=== PATIENT | male | born 1980 | race African-American/Black ===

== ENCOUNTER 2018-05-16 16:02 | Inpatient (IN) ==
[2018-05-16] MEDS ORDERED: Morphine Inj 4 MG/ML Vial IV.PUSH ONE (17:11)
[2018-05-16] MEDS ORDERED: Sod Chloride 0.9% Inj 1,000 ML IV.SIG ONE (17:11)
--- NOTE | 2018-05-16 17:15 | ED ---
HPI General Chief complaint: Nausea/Vomiting/Diarrhea Stated complaint: vomiting/ [facility] Time Seen by Provider: 05/16/18 16:56 History of Present Illness HPI narrative: 37-year-old male with a history of type 1 DM, gastroparesis and HTN presents to the ED for evaluation of nausea, vomiting, diarrhea and abdominal pain. Patient states he has had diarrhea for 3 days. States today he started having vomiting and abdominal pain. Patient states his blood sugars have been in the 300s the last several days as well. He denies any fever, chills, chest pain, shortness of breath, dysuria, hematuria. Denies any prior abdominal surgeries. [facility] No other complaints. Related Data Home Medications Medication Instructions Recorded Confirmed gabapentin 300 mg PO HS 04/04/18 05/16/18 insulin aspart U-100 [Novolog See Protocol SUBCUT ACHS 04/04/18 05/16/18 U-100 Insulin aspart] lisinopril 5 mg PO DAILY 04/04/18 05/16/18 insulin glargine [Lantus U-100 25 unit SUBCUT DAILY 05/16/18 05/16/18 Insulin] Allergies Allergy/AdvReac Type Severity Reaction Status Date / Time No Known Allergies Allergy Verified 05/16/18 16:11 Review of Systems ROS: all other systems reviewed are negative PMFSH Surgical History Surgical History H/O cardiac catheterization (Acute) Family History Family History Mother Diabetes Father Healthy adult male Social History Social History Substance History: No History of Abuse Second Hand Smoke Exposure: No Smoking Status: Never smoker Tobacco Type: Cigarettes How Often Do You Have a Drink Containing Alcohol: Monthly or less Recent Travel in [facility] within the Last 8 Weeks: No Recent Out of Country Travel within the Last 8 Weeks: No Immunization History Tetanus Immunization: >5 Years Exam Narrative Exam Narrative: GENERAL: Well-nourished and well-developed pleasant patient in moderate discomfort, lying in the position on stretcher. SKIN: Warm and dry. HEAD: Normocephalic and atraumatic. EYES: No injection, drainage, or hyphema noted. PERRLA. EOMI. ENT: No nasal drainage noted. Oropharynx is clear. NECK: Supple and the trachea is midline. CARDIOVASCULAR: Regular rate and rhythm. RESPIRATORY: Breath sounds are equal bilaterally with no accessory muscle use, wheezing, rhonchi, or crackles. GASTROINTESTINAL: Generalized tenderness to palpation. Abdomen is soft and nondistended. MUSCULOSKELETAL: No obvious deformities, swelling, cyanosis, or ecchymosis is present throughout the upper and lower extremities. Patient has full range of motion without any signs of neurovascular compromise. Distal pulses are 2+ throughout. NEUROLOGICAL: Awake, alert, and oriented. Normal speech and gait. Cranial nerves are grossly intact. Course Initial Documented Vital Signs Temperature 97.4 F L 05/16/18 16:05 Pulse Rate 120 H 05/16/18 16:05 Respiratory Rate 18 05/16/18 16:05 Blood Pressure 179/104 H 05/16/18 16:05 Pulse Oximetry 98 05/16/18 16:05 Last Documented Vital Signs Temperature 97.9 F 05/19/18 11:33 Pulse Rate 94 H 05/19/18 11:33 Respiratory Rate 17 05/19/18 11:33 Blood Pressure 190/109 H 05/19/18 11:33 Pulse Oximetry 98 05/19/18 11:33 Medical Decision Making REBEKAH Attestation REBEKAH supervised visit: Yes Attestation: I, Dr. Nicole, have reviewed the advance practice practitioner's documentation and am in agreement, met with the patient face to face, made the diagnosis, and the medical decision making was done by me. *My assessment and Findings: Patient seen and evaluated with PA, please see PA notes for further details. He is here for nausea, vomiting, diarrhea, and abdominal pain. Previous history of gastroparesis. Tachycardic. Was given IV fluids and nausea medications in the ER. Lab work sent and CAT scan sent, if unremarkable and the patient is improved, planning to release. [facility] Narrative Medical decision making narrative: 37-year-old male presents to the emergency department for evaluation of diarrhea, nausea, vomiting and abdominal pain. Patient is afebrile. He is tachycardic initially with a heart rate of 120 bpm. His blood pressure is elevated as well. He did not take his lisinopril today as prescribed. IV access is obtained, labs of been drawn and sent. Patient is placed on cardiac telemetry and pulse oximetry monitoring. Patient administered Reglan 10 mg IV for nausea and morphine 4 mg IV for pain. CT of the abdomen and pelvis has been ordered and is pending. CBC shows white blood cell count 12.2, otherwise unremarkable. CMP is within normal limits with the exception of slightly elevated glucose of 203. CT of the abdomen and pelvis with IV contrast shows mild nonspecific colitis mostly at the hepatic flexure and fatty infiltration of the liver. Urinalysis shows elevated specific gravity, 30, 80 ketones, few mucus. Patient has been administered 2 L of IV fluid and his heart rate is still around 110 bpm. Patient is still feeling very poor overall with nausea and abdominal pain. Requesting nonnarcotic pain medication, patient administered Tylenol 1 g orally. Patient administered Cipro 400 mg IV and Flagyl 500 mg IV. Patient will be admitted to medicine service for sepsis, colitis and dehydration. I spoke with Dr. Franco [facility] who accepts patient to his service for admission. Medical Screen Exam Complete: Yes Emergency Medical Condition: Yes Differential Diagnosis Differential Diagnosis: Colitis versus enteritis versus gastroparesis versus dehydration versus DKA Lab Data Result diagrams: 05/18/18 03:42 05/18/18 03:42 Lab Results 05/16/18 05/16/18 05/16/18 Range/Units 18:40 18:40 22:00 WBC 12.2 H (4.0-11.0) th/mm3 RBC 5.16 (4.50-5.90) mil/mm3 Hgb 14.5 (13.0-17.0) gm/dL Hct 44.1 (39.0-51.0) % MCV 85.5 (80.0-100.0) fL MCH 28.1 (27.0-34.0) pg MCHC 32.8 (32.0-36.0) % RDW 13.2 (11.6-17.2) % Plt Count 393 (150-450) th/mm3 MPV 8.0 (7.0-11.0) fL Neut % (Auto) 92.5 H (16.0-70.0) % Lymph % (Auto) 3.5 L (9.0-44.0) % [place] % (Auto) 3.3 (0.0-8.0) % Eos % (Auto) 0.0 (0.0-4.0) % Baso % (Auto) 0.7 (0.0-2.0) % Neut # (Auto) 11.3 H (1.8-7.7) th/mm3 Lymph # (Auto) 0.4 L (1.0-4.8) th/mm3 [place] # (Auto) 0.4 (0.0-0.9) th/mm3 Eos # (Auto) 0.0 (0.0-0.4) th/mm3 Baso # (Auto) 0.1 (0.0-0.2) th/mm3 WBC Differential . Differential Comment Auto diff final Sodium 140 (136-145) meq/L Potassium 4.0 (3.5-5.1) meq/L Chloride 105 (98-107) meq/L Carbon Dioxide 20.6 L (21.0-32.0) meq/L Anion Gap 14 (5-15) meq/L BUN 14 (7-18) mg/dL Creatinine 1.07 (0.60-1.30) mg/dL Estimated GFR Greater than 89 (>89) mL/min POC Glucose (68-110) mg/dl Random Glucose 203 H (74-106) mg/dL Lactic Acid (0.4-2.0) mmol/L Calcium 9.2 (8.5-10.1) mg/dL Magnesium 1.8 (1.5-2.5) mg/dL Total Bilirubin 0.2 (0.2-1.0) mg/dL AST 13 L (15-37) U/L ALT 18 (12-78) U/L Alkaline Phosphatase 92 (45-117) U/L Total Protein 8.2 (6.4-8.2) g/dL Albumin 3.9 (3.4-5.0) g/dL Lipase 92 (73-393) U/L Urine Color Straw (Yellw/Straw) Urine Clarity Clear (Clear) Urine pH 5.0 (5.0-8.5) Ur Specific [place] 1.039 H (1.002-1.035) Urine Protein 30 H (Neg-Trace) mg/dL Urine Glucose (UA) 500 or greater (Negative) mg/dL Urine Ketones 80 or greater H (Negative) mg/dL Urine Occult Blood Negative (Negative) Urine Nitrate Negative (Negative) Urine Bilirubin Negative (Negative) Urine Urobilinogen Less than 2 (Less than 2) mg/dL Ur Leukocyte Esterase Negative (Negative) Urine RBC 1 (0-3) /hpf Urine WBC Less than 1 (0-5) /hpf Hyaline Casts 1 (0-3) /lpf Urine Mucus Few H (Occasional) /lpf Micro UA Comment Culture not ind Ur Microscopic Review Not Reportable Urine Culture Comments Culture not ind 05/16/18 05/17/18 05/17/18 Range/Units 23:01 00:52 02:01 WBC (4.0-11.0) th/mm3 RBC (4.50-5.90) mil/mm3 Hgb (13.0-17.0) gm/dL Hct (39.0-51.0) % MCV (80.0-100.0) fL MCH (27.0-34.0) pg MCHC (32.0-36.0) % RDW (11.6-17.2) % Plt Count (150-450) th/mm3 MPV (7.0-11.0) fL Neut % (Auto) (16.0-70.0) % Lymph % (Auto) (9.0-44.0) % [place] % (Auto) (0.0-8.0) % Eos % (Auto) (0.0-4.0) % Baso % (Auto) (0.0-2.0) % Neut # (Auto) (1.8-7.7) th/mm3 Lymph # (Auto) (1.0-4.8) th/mm3 [place] # (Auto) (0.0-0.9) th/mm3 Eos # (Auto) (0.0-0.4) th/mm3 Baso # (Auto) (0.0-0.2) th/mm3 WBC Differential Differential Comment Sodium (136-145) meq/L Potassium (3.5-5.1) meq/L Chloride (98-107) meq/L Carbon Dioxide (21.0-32.0) meq/L Anion Gap (5-15) meq/L BUN (7-18) mg/dL Creatinine (0.60-1.30) mg/dL Estimated GFR (>89) mL/min POC Glucose 382 H (68-110) mg/dl Random Glucose (74-106) mg/dL Lactic Acid 3.2 H 2.4 H (0.4-2.0) mmol/L Calcium (8.5-10.1) mg/dL Magnesium (1.5-2.5) mg/dL Total Bilirubin (0.2-1.0) mg/dL AST (15-37) U/L ALT (12-78) U/L Alkaline Phosphatase (45-117) U/L Total Protein (6.4-8.2) g/dL Albumin (3.4-5.0) g/dL Lipase (73-393) U/L Urine Color (Yellw/Straw) Urine Clarity (Clear) Urine pH (5.0-8.5) Ur Specific [place] (1.002-1.035) Urine Protein (Neg-Trace) mg/dL Urine Glucose (UA) (Negative) mg/dL Urine Ketones (Negative) mg/dL Urine Occult Blood (Negative) Urine Nitrate (Negative) Urine Bilirubin (Negative) Urine Urobilinogen (Less than 2) mg/dL Ur Leukocyte Esterase (Negative) Urine RBC (0-3) /hpf Urine WBC (0-5) /hpf Hyaline Casts (0-3) /lpf Urine Mucus (Occasional) /lpf Micro UA Comment Ur Microscopic Review Urine Culture Comments 05/17/18 05/17/18 05/17/18 Range/Units 03:43 04:08 08:16 WBC (4.0-11.0) th/mm3 RBC (4.50-5.90) mil/mm3 Hgb (13.0-17.0) gm/dL Hct (39.0-51.0) % MCV (80.0-100.0) fL MCH (27.0-34.0) pg MCHC (32.0-36.0) % RDW (11.6-17.2) % Plt Count (150-450) th/mm3 MPV (7.0-11.0) fL Neut % (Auto) (16.0-70.0) % Lymph % (Auto) (9.0-44.0) % [place] % (Auto) (0.0-8.0) % Eos % (Auto) (0.0-4.0) % Baso % (Auto) (0.0-2.0) % Neut # (Auto) (1.8-7.7) th/mm3 Lymph # (Auto) (1.0-4.8) th/mm3 [place] # (Auto) (0.0-0.9) th/mm3 Eos # (Auto) (0.0-0.4) th/mm3 Baso # (Auto) (0.0-0.2) th/mm3 WBC Differential Differential Comment Sodium (136-145) meq/L Potassium (3.5-5.1) meq/L Chloride (98-107) meq/L Carbon Dioxide (21.0-32.0) meq/L Anion Gap (5-15) meq/L BUN (7-18) mg/dL Creatinine (0.60-1.30) mg/dL Estimated GFR (>89) mL/min POC Glucose 369 H 298 H (68-110) mg/dl Random Glucose (74-106) mg/dL Lactic Acid 2.6 H (0.4-2.0) mmol/L Calcium (8.5-10.1) mg/dL Magnesium (1.5-2.5) mg/dL Total Bilirubin (0.2-1.0) mg/dL AST (15-37) U/L ALT (12-78) U/L Alkaline Phosphatase (45-117) U/L Total Protein (6.4-8.2) g/dL Albumin (3.4-5.0) g/dL Lipase (73-393) U/L Urine Color (Yellw/Straw) Urine Clarity (Clear) Urine pH (5.0-8.5) Ur Specific [place] (1.002-1.035) Urine Protein (Neg-Trace) mg/dL Urine Glucose (UA) (Negative) mg/dL Urine Ketones (Negative) mg/dL Urine Occult Blood (Negative) Urine Nitrate (Negative) Urine Bilirubin (Negative) Urine Urobilinogen (Less than 2) mg/dL Ur Leukocyte Esterase (Negative) Urine RBC (0-3) /hpf Urine WBC (0-5) /hpf Hyaline Casts (0-3) /lpf Urine Mucus (Occasional) /lpf Micro UA Comment Ur Microscopic Review Urine Culture Comments 05/17/18 05/17/18 05/17/18 Range/Units 11:11 17:14 19:35 WBC (4.0-11.0) th/mm3 RBC (4.50-5.90) mil/mm3 Hgb (13.0-17.0) gm/dL Hct (39.0-51.0) % MCV (80.0-100.0) fL MCH (27.0-34.0) pg MCHC (32.0-36.0) % RDW (11.6-17.2) % Plt Count (150-450) th/mm3 MPV (7.0-11.0) fL Neut % (Auto) (16.0-70.0) % Lymph % (Auto) (9.0-44.0) % [place] % (Auto) (0.0-8.0) % Eos % (Auto) (0.0-4.0) % Baso % (Auto) (0.0-2.0) % Neut # (Auto) (1.8-7.7) th/mm3 Lymph # (Auto) (1.0-4.8) th/mm3 [place] # (Auto) (0.0-0.9) th/mm3 Eos # (Auto) (0.0-0.4) th/mm3 Baso # (Auto) (0.0-0.2) th/mm3 WBC Differential Differential Comment Sodium (136-145) meq/L Potassium (3.5-5.1) meq/L Chloride (98-107) meq/L Carbon Dioxide (21.0-32.0) meq/L Anion Gap (5-15) meq/L BUN (7-18) mg/dL Creatinine (0.60-1.30) mg/dL Estimated GFR (>89) mL/min POC Glucose 243 H 262 H 197 H (68-110) mg/dl Random Glucose (74-106) mg/dL Lactic Acid (0.4-2.0) mmol/L Calcium (8.5-10.1) mg/dL Magnesium (1.5-2.5) mg/dL Total Bilirubin (0.2-1.0) mg/dL AST (15-37) U/L ALT (12-78) U/L Alkaline Phosphatase (45-117) U/L Total Protein (6.4-8.2) g/dL Albumin (3.4-5.0) g/dL Lipase (73-393) U/L Urine Color (Yellw/Straw) Urine Clarity (Clear) Urine pH (5.0-8.5) Ur Specific [place] (1.002-1.035) Urine Protein (Neg-Trace) mg/dL Urine Glucose (UA) (Negative) mg/dL Urine Ketones (Negative) mg/dL Urine Occult Blood (Negative) Urine Nitrate (Negative) Urine Bilirubin (Negative) Urine Urobilinogen (Less than 2) mg/dL Ur Leukocyte Esterase (Negative) Urine RBC (0-3) /hpf Urine WBC (0-5) /hpf Hyaline Casts (0-3) /lpf Urine Mucus (Occasional) /lpf Micro UA Comment Ur Microscopic Review Urine Culture Comments 05/17/18 05/18/18 05/18/18 Range/Units 20:09 03:42 03:42 WBC 11.4 H (4.0-11.0) th/mm3 RBC 5.04 (4.50-5.90) mil/mm3 Hgb 14.7 (13.0-17.0) gm/dL Hct 42.9 (39.0-51.0) % MCV 85.1 (80.0-100.0) fL MCH 29.2 (27.0-34.0) pg MCHC 34.3 (32.0-36.0) % RDW 13.3 (11.6-17.2) % Plt Count 342 (150-450) th/mm3 MPV 8.8 (7.0-11.0) fL Neut % (Auto) 82.4 H (16.0-70.0) % Lymph % (Auto) 10.5 (9.0-44.0) % [place] % (Auto) 6.5 (0.0-8.0) % Eos % (Auto) 0.2 (0.0-4.0) % Baso % (Auto) 0.4 (0.0-2.0) % Neut # (Auto) 9.4 H (1.8-7.7) th/mm3 Lymph # (Auto) 1.2 (1.0-4.8) th/mm3 [place] # (Auto) 0.7 (0.0-0.9) th/mm3 Eos # (Auto) 0.0 (0.0-0.4) th/mm3 Baso # (Auto) 0.0 (0.0-0.2) th/mm3 WBC Differential . Differential Comment Auto diff final Sodium 140 (136-145) meq/L Potassium 4.0 (3.5-5.1) meq/L Chloride 103 (98-107) meq/L Carbon Dioxide 18.5 L (21.0-32.0) meq/L Anion Gap 19 H (5-15) meq/L BUN 12 (7-18) mg/dL Creatinine 1.04 (0.60-1.30) mg/dL Estimated GFR Greater than 89 (>89) mL/min POC Glucose (68-110) mg/dl Random Glucose 233 H (74-106) mg/dL Lactic Acid 1.7 (0.4-2.0) mmol/L Calcium 8.8 (8.5-10.1) mg/dL Magnesium (1.5-2.5) mg/dL Total Bilirubin 0.3 (0.2-1.0) mg/dL AST 11 L (15-37) U/L ALT 16 (12-78) U/L Alkaline Phosphatase 87 (45-117) U/L Total Protein 7.8 (6.4-8.2) g/dL Albumin 3.7 (3.4-5.0) g/dL Lipase (73-393) U/L Urine Color (Yellw/Straw) Urine Clarity (Clear) Urine pH (5.0-8.5) Ur Specific [place] (1.002-1.035) Urine Protein (Neg-Trace) mg/dL Urine Glucose (UA) (Negative) mg/dL Urine Ketones (Negative) mg/dL Urine Occult Blood (Negative) Urine Nitrate (Negative) Urine Bilirubin (Negative) Urine Urobilinogen (Less than 2) mg/dL Ur Leukocyte Esterase (Negative) Urine RBC (0-3) /hpf Urine WBC (0-5) /hpf Hyaline Casts (0-3) /lpf Urine Mucus (Occasional) /lpf Micro UA Comment Ur Microscopic Review Urine Culture Comments 05/18/18 05/18/18 05/18/18 Range/Units 08:37 12:50 16:28 WBC (4.0-11.0) th/mm3 RBC (4.50-5.90) mil/mm3 Hgb (13.0-17.0) gm/dL Hct (39.0-51.0) % MCV (80.0-100.0) fL MCH (27.0-34.0) pg MCHC (32.0-36.0) % RDW (11.6-17.2) % Plt Count (150-450) th/mm3 MPV (7.0-11.0) fL Neut % (Auto) (16.0-70.0) % Lymph % (Auto) (9.0-44.0) % [place] % (Auto) (0.0-8.0) % Eos % (Auto) (0.0-4.0) % Baso % (Auto) (0.0-2.0) % Neut # (Auto) (1.8-7.7) th/mm3 Lymph # (Auto) (1.0-4.8) th/mm3 [place] # (Auto) (0.0-0.9) th/mm3 Eos # (Auto) (0.0-0.4) th/mm3 Baso # (Auto) (0.0-0.2) th/mm3 WBC Differential Differential Comment Sodium (136-145) meq/L Potassium (3.5-5.1) meq/L Chloride (98-107) meq/L Carbon Dioxide (21.0-32.0) meq/L Anion Gap (5-15) meq/L BUN (7-18) mg/dL Creatinine (0.60-1.30) mg/dL Estimated GFR (>89) mL/min POC Glucose 266 H 268 H 261 H (68-110) mg/dl Random Glucose (74-106) mg/dL Lactic Acid (0.4-2.0) mmol/L Calcium (8.5-10.1) mg/dL Magnesium (1.5-2.5) mg/dL Total Bilirubin (0.2-1.0) mg/dL AST (15-37) U/L ALT (12-78) U/L Alkaline Phosphatase (45-117) U/L Total Protein (6.4-8.2) g/dL Albumin (3.4-5.0) g/dL Lipase (73-393) U/L Urine Color (Yellw/Straw) Urine Clarity (Clear) Urine pH (5.0-8.5) Ur Specific [place] (1.002-1.035) Urine Protein (Neg-Trace) mg/dL Urine Glucose (UA) (Negative) mg/dL Urine Ketones (Negative) mg/dL Urine Occult Blood (Negative) Urine Nitrate (Negative) Urine Bilirubin (Negative) Urine Urobilinogen (Less than 2) mg/dL Ur Leukocyte Esterase (Negative) Urine RBC (0-3) /hpf Urine WBC (0-5) /hpf Hyaline Casts (0-3) /lpf Urine Mucus (Occasional) /lpf Micro UA Comment Ur Microscopic Review Urine Culture Comments 05/18/18 05/19/18 05/19/18 Range/Units 20:08 07:45 11:23 WBC (4.0-11.0) th/mm3 RBC (4.50-5.90) mil/mm3 Hgb (13.0-17.0) gm/dL Hct (39.0-51.0) % MCV (80.0-100.0) fL MCH (27.0-34.0) pg MCHC (32.0-36.0) % RDW (11.6-17.2) % Plt Count (150-450) th/mm3 MPV (7.0-11.0) fL Neut % (Auto) (16.0-70.0) % Lymph % (Auto) (9.0-44.0) % [place] % (Auto) (0.0-8.0) % Eos % (Auto) (0.0-4.0) % Baso % (Auto) (0.0-2.0) % Neut # (Auto) (1.8-7.7) th/mm3 Lymph # (Auto) (1.0-4.8) th/mm3 [place] # (Auto) (0.0-0.9) th/mm3 Eos # (Auto) (0.0-0.4) th/mm3 Baso # (Auto) (0.0-0.2) th/mm3 WBC Differential Differential Comment Sodium (136-145) meq/L Potassium (3.5-5.1) meq/L Chloride (98-107) meq/L Carbon Dioxide (21.0-32.0) meq/L Anion Gap (5-15) meq/L BUN (7-18) mg/dL Creatinine (0.60-1.30) mg/dL Estimated GFR (>89) mL/min POC Glucose 264 H 268 H 254 H (68-110) mg/dl Random Glucose (74-106) mg/dL Lactic Acid (0.4-2.0) mmol/L Calcium (8.5-10.1) mg/dL Magnesium (1.5-2.5) mg/dL Total Bilirubin (0.2-1.0) mg/dL AST (15-37) U/L ALT (12-78) U/L Alkaline Phosphatase (45-117) U/L Total Protein (6.4-8.2) g/dL Albumin (3.4-5.0) g/dL Lipase (73-393) U/L Urine Color (Yellw/Straw) Urine Clarity (Clear) Urine pH (5.0-8.5) Ur Specific [place] (1.002-1.035) Urine Protein (Neg-Trace) mg/dL Urine Glucose (UA) (Negative) mg/dL Urine Ketones (Negative) mg/dL Urine Occult Blood (Negative) Urine Nitrate (Negative) Urine Bilirubin (Negative) Urine Urobilinogen (Less than 2) mg/dL Ur Leukocyte Esterase (Negative) Urine RBC (0-3) /hpf Urine WBC (0-5) /hpf Hyaline Casts (0-3) /lpf Urine Mucus (Occasional) /lpf Micro UA Comment Ur Microscopic Review Urine Culture Comments Imaging Data Radiologist's impression: Abdomen/Pelvis CT 05/16/18 17:11 CONCLUSION: 1. Apparent mild nonspecific colitis, mostly in the hepatic flexure region. 2. Liver is slightly fatty infiltrated. Abdomen X-Ray 05/18/18 00:00 CONCLUSION: Negative examination. Discharge Plan Discharge Disposition Patient Disposition: 30 Still Patient Discharge Condition Condition: Stable Discharge Details Diagnosis: Sepsis, Colitis, Dehydration Physicians Team ED Provider: Rylan Nicole ED Midlevel Provider: Sharee Catalan Primary Care Provider: [facility],Physician 's Attending Provider: Kady Gonzalez Status ED Status: Left Department Discharge Information Discharge Date/Time: 05/17/18 12:26
[2018-05-16] MEDS ORDERED: Lisinopril 5 MG Tablet PO ONE (18:33)
[2018-05-16 19:03] LABS: Baso # (Auto) 0.1 th/mm3 (0.0-0.2); Baso % (Auto) 0.7 % (0.0-2.0); Hematocrit 44.1 % (39.0-51.0); Hemoglobin 14.5 gm/dL (13.0-17.0); Lymph # (Auto) 0.4 th/mm3 (1.0-4.8); Lymph % (Auto) 3.5 % (9.0-44.0); Mean Corpuscular HGB Conc 32.8 % (32.0-36.0); Mean Corpuscular Hemoglobin 28.1 pg (27.0-34.0); Mean Corpuscular Volume 85.5 fL (80.0-100.0); Mono # (Auto) 0.4 th/mm3 (0.0-0.9); Mono % (Auto) 3.3 % (0.0-8.0); Neut # (Auto) 11.3 th/mm3 (1.8-7.7); Neut % (Auto) 92.5 % (16.0-70.0); Platelet Count 393 th/mm3 (150-450); Red Blood Count 5.16 mil/mm3 (4.50-5.90); Red Cell Distribution Width 13.2 % (11.6-17.2); White Blood Count 12.2 th/mm3 (4.0-11.0)
[2018-05-16 19:35] LABS: Alanine Aminotransferase 18 U/L (12-78); Albumin 3.9 g/dL (3.4-5.0); Anion Gap 14 meq/L (5-15); Aspartate Aminotransferase 13 U/L (15-37); Blood Urea Nitrogen 14 mg/dL (7-18); Calcium 9.2 mg/dL (8.5-10.1); Carbon Dioxide 20.6 meq/L (21.0-32.0); Chloride 105 meq/L (98-107); Glomerular Filtration Rate Greater Than 89 mL/min (>89); Glucose,Random 203 mg/dL (74-106); Lipase 92 U/L (73-393); Magnesium 1.8 mg/dL (1.5-2.5); Sodium 140 meq/L (136-145)
[2018-05-16 19:38] LABS: Alkaline Phosphatase 92 U/L (45-117); Total Protein 8.2 g/dL (6.4-8.2)
--- NOTE | 2018-05-16 20:08 | CT ---
EXAM DATE: 05/16/2018 7:58 PM EST AGE/SEX: 37 years / Male INDICATIONS: Diffuse abdominal pain with vomiting and diarrhea. CLINICAL DATA: This is the patient's initial encounter. Patient reports that signs and symptoms have been present for 2 days and indicates a pain score of 10/10. MEDICAL/SURGICAL HISTORY: Hypertension. Diabetes. None. ORAL CONTRAST: No oral contrast ingested. RADIATION DOSE: 5.37 CTDI (mGy) [place] [facility] [place] 12/21/2015. . TECHNIQUE: Multiple contiguous axial images were obtained through the abdomen and pelvis following b olus infusion of 95 ml Omnipaque 350 (iohexol) nonionic water-soluble contrast as a single exam dos e. No oral contrast ingested. Using automated exposure control and adjustment of the mA and/or kV ac cording to patient size, radiation dose was kept as low as reasonably achievable to obtain optimal di agnostic quality images. DICOM format image data is available electronically for review and comparis on. FINDINGS: Colonic wall thickening is seen in the region of the hepatic flexure. No obstruction. No free fluid o r free air. No lymphadenopathy. The appendix is well-visualized and normal. The liver is slightly fatty infiltrated. Spleen, pancreas, adrenal glands and kidneys are all within normal limits. Visualized lung bases are clear. No acute bony abnormality demonstrated. CONCLUSION: 1. Apparent mild nonspecific colitis, mostly in the hepatic flexure region. 2. Liver is slightly fatty infiltrated. Electronically signed by: Mukesh Dutta MD 05/16/2018 8:07 PM EST
[2018-05-16] MEDS ORDERED: Ciprofloxacin 400 MG/200 ML 400 MG/200 ML PIGGYBACK IV.SIG ONE (20:29)
[2018-05-16] MEDS ORDERED: Sod Chloride 0.9% Inj 1,000 ML IV.SIG SCH (20:30)
[2018-05-16 22:33] LABS: Bilirubin,Urine Negative (Negative); Clarity,Urine Clear (Clear); Color,Urine Straw (Yellw/Straw); Glucose,Urine (UA) 500 or Greater mg/dL (Negative); Hyaline Casts,Urine 1 /lpf (0-3); Leukocyte Esterase,Urine Negative (Negative); Mucus,Urine Few /lpf (Occasional); Nitrite,Urine Negative (Negative); Specific Gravity,Urine 1.039 (1.002-1.035)
[2018-05-16] MEDS ORDERED: Acetaminophen 500 MG Tablet PO ONE (22:55)
[2018-05-17] MEDS ORDERED: Bisacodyl 10 MG Supp RECTAL PRN (00:23)
[2018-05-17] MEDS ORDERED: Insulin Detemir Inj 1,000 UNIT/10 ML Vial SQ SCH (00:30)
[2018-05-17] MEDS: Sod Chloride 0.9% Inj 1,000 ML IV.CONT SCH ×3 (00:50→20:24)
[2018-05-17] MEDS ORDERED: Morphine Inj 4 MG/ML Vial IV.PUSH PRN ×2 (02:29)
[2018-05-17] MEDS ORDERED: Naloxone Inj 0.4 MG/ML Vial IV.PUSH PRN (02:29)
[2018-05-17] MEDS: Morphine Sulfate Inj 2 MG/ML Vial IV.PUSH PRN (03:30)
[2018-05-17] MEDS ORDERED: Potassium Chlor 10 mEq Premix 10 MEQ/100 ML PIGGYBACK IV.SIG ONE (04:52)
--- NOTE | 2018-05-17 04:59 | P.HPIM ---
History of Present Illness Primary Care Physician: [facility] History of Present Illness: 37-year-old male with a history of type 1 diabetes mellitus, hypertension, gastroparesis who presents with a 3-day history of nausea, vomiting, profuse watery diarrhea, crampy diffuse abdominal pain limited to the abdomen, as well as fatigue.. He reports chills today while in the ER, however denies any fevers. He is also reports hyperglycemia with sugars in the 300s. Denies any dysuria, chest pain, shortness of breath. Patient does have history of cardiac catheterization which was portably negative. Inpatient Certification: I certify that the inpatient services were ordered in accordance with Medicare regulations governing the order. This includes certification that hospital inpatient services are reasonable and necessary and in the case of services not specified as inpatient-only under 42 CFR 419.22(n), that they are appropriately provided as inpatient services in accordance to with the 2-midnight benchmark under 43 CFR 412.3(e) Estimated Total Length of Stay (Days): 2 Plans for Post Hospital Care: Home Review of Systems All other systems reviewed negative except as stated in HPI PMFSH - History History Provided By: Patient - Medical History Medical History: Medical History (Last Reviewed 05/17/18 @ 04:59 by Stepan Franco MD) No significant past surgical history Diabetes Hypertension - Surgical History Surgical History: Surgical History (Last Updated 05/17/18 @ 04:59 by Stepan Franco MD) H/O cardiac catheterization - Family History Family History: Family History (Last Updated 05/17/18 @ 04:59 by Stepan Franco MD) Mother Diabetes Father Healthy adult male - Tobacco History Second Hand Smoke Exposure: No Tobacco Use In Past 30 Days: No Smoking Status: Former smoker Tobacco Type: Cigarettes - Alcohol History How Often Do You Have a Drink Containing Alcohol: Never - Substance Use History Substance History: No History of Abuse - Travel History Recent Travel in the [place] Within the Last 8 Weeks: No Recent Travel Out of the Country Within the Last 8 Weeks: No - Immunization History Tetanus Immunization: >5 Years Medications and Allergies Active Medications: Active Medications Al Hydroxide/Mg Hydroxide (Milk Of Magnjayashree Liq) 30 ml PO Q12H PRN PRN Reason: Mild Constipation Bisacodyl (Dulcolax Supp) 10 mg RECTAL DAILY PRN PRN Reason: SEVERE CONSITIPATION Cefepime HCl 2,000 mg/ Sodium (Chloride) 100 mls @ 200 mls/hr IV.SIG Q8H [facility] Last Infusion: 05/17/18 01:37 Dose: Infused Metronidazole/Sodium Chloride (Flagyl 500 Mg Inj) 100 mls @ 100 mls/hr IV.SIG Q8H [facility] Last Infusion: 05/17/18 02:45 Dose: Infused Sodium Chloride (Ns Inj) 1,000 mls @ 100 mls/hr IV.CONT .Q10H [facility] Last Admin: 05/17/18 00:50 Dose: 100 mls/hr Insulin Aspart (Novolog Insulin Correctional Sugar Inj) 0 unit SQ ACHS [facility]; Protocol Insulin Detemir (Levemir Inj) 5 unit SQ BID [facility] Last Admin: 05/17/18 01:02 Dose: 5 unit Lactulose (Lactulose Liq) 30 ml PO DAILY PRN PRN Reason: SEVERE CONSITIPATION Morphine Sulfate (Morphine Inj) 4 mg IV.PUSH Q3H PRN PRN Reason: PAIN 6-10;IF UNABLE TO TAKE PO Morphine Sulfate (Morphine Inj) 4 mg IV.PUSH Q3H PRN PRN Reason: BREAKTHROUGH PAIN Morphine Sulfate (Morphine Inj) 2 mg IV.PUSH Q3H PRN PRN Reason: PAIN 3-5; IF UABLE TO TAKE PO Last Admin: 05/17/18 03:30 Dose: 2 mg Naloxone HCl (Narcan Inj) 0.4 mg IV.PUSH UNSCH PRN PRN Reason: SEE LABEL COMMENTS Oxycodone/Acetaminophen (Percocet 10/325 Mg) 1 tab PO Q6H PRN PRN Reason: PAIN SCALE 6 TO 10 Oxycodone/Acetaminophen (Percocet 5/325 Mg) 1 tab PO Q6H PRN PRN Reason: PAIN SCALE 3 TO 5 Sennosides (Senokot) 17.2 mg PO Q12H PRN PRN Reason: Moderate Constipation Sodium Chloride (Ns Flush) 2 ml IV.FLUSH PRN PRN PRN Reason: FLUSH AFTER USING IV ACCESS Last Admin: 05/16/18 17:32 Dose: 2 ml Allergies Allergy/AdvReac Type Severity Reaction Status Date / Time No Known Allergies Allergy Verified 05/16/18 16:11 Home Medications Medication Instructions Recorded Confirmed Type gabapentin 300 mg PO HS 04/04/18 05/16/18 History insulin aspart U-100 [Novolog See Protocol SUBCUT ACHS 04/04/18 05/16/18 History U-100 Insulin aspart] lisinopril 5 mg PO DAILY 04/04/18 05/16/18 History insulin glargine [Lantus U-100 25 unit SUBCUT DAILY 05/16/18 05/16/18 History Insulin] Exam Vital signs: Vital Signs 05/16/18 16:05 05/16/18 17:30 05/16/18 19:17 Temperature 97.4 F L Pulse Rate 120 H 111 H Respiratory Rate 18 16 18 Blood Pressure 179/104 H 163/99 H Pulse Oximetry 98 97 05/17/18 02:04 Temperature Pulse Rate 117 H Respiratory Rate 18 Blood Pressure 165/97 H Pulse Oximetry 99 Intake & Output 05/16/18 05/16/18 05/17/18 06:59 18:59 06:59 Intake Total 1000 / 1000 1500 / 1500 Balance 1000 / 1000 1500 / 1500 Weight 72.575 kg Intake: IV 1000 / 1000 1500 / 1500 Maxipime Inj 2,000 MG In NS Inj 100 / 100 100 ML @ 200 mls/hr IV.SIG Q8H [facility] Rx#:[id number] Cipro 400 MG/200 ML Inj 400 mg 200 / 200 In 200 ml @ 200 mls/hr IV.SIG ONCE ONE Rx#:[id number] NS Inj 1,000 ML @ 1000 mls/hr 1000 / 1000 1000 / 1000 IV.SIG BOLUS [facility] Rx#:[id number] Flagyl 500 MG Inj 100 ML @ 100 200 / 200 mls/hr IV.SIG Q8H [facility] Rx#: [id number] Other: Date of Last Bowel Movement 05/16/18 Narrative: GENERAL: Patient sitting up in bed. Appears uncomfortable. Alert and oriented x3. SKIN: Warm and dry. HEAD: Atraumatic. Normocephalic. EYES: Pupils equal and round. No scleral icterus. No injection or drainage. ENT: No nasal bleeding or discharge. Mucous membranes pink and moist. NECK: Trachea midline. No JVD. CARDIOVASCULAR: Regular rate and rhythm. RESPIRATORY: No accessory muscle use. Clear to auscultation. Breath sounds equal bilaterally. GASTROINTESTINAL: Abdomen soft, nondistended. Tender to moderate palpation diffusely. Hepatic and splenic margins not palpable. MUSCULOSKELETAL: Extremities without clubbing, cyanosis, or edema. No obvious deformities. NEUROLOGICAL: Awake and alert. No obvious cranial nerve deficits. Motor grossly within normal limits. Five out of 5 muscle strength in the arms and legs. Normal speech. PSYCHIATRIC: Appropriate mood and affect; insight and judgment normal. Results - Labs CBC & Chem 7: 05/16/18 18:40 05/16/18 18:40 Labs: Short CBC 05/16/18 Range/Units 18:40 WBC 12.2 H (4.0-11.0) th/mm3 Hgb 14.5 (13.0-17.0) gm/dL Hct 44.1 (39.0-51.0) % Plt Count 393 (150-450) th/mm3 BMP 05/16/18 18:40 Sodium 140 Potassium 4.0 Chloride 105 Carbon Dioxide 20.6 L BUN 14 Creatinine 1.07 Calcium 9.2 Liver Function 05/16/18 Range/Units 18:40 Total Bilirubin 0.2 (0.2-1.0) mg/dL AST 13 L (15-37) U/L ALT 18 (12-78) U/L Alkaline Phosphatase 92 (45-117) U/L Albumin 3.9 (3.4-5.0) g/dL Urine 05/16/18 Range/Units 22:00 Urine Color Straw (Yellw/Straw) Urine Clarity Clear (Clear) Urine pH 5.0 (5.0-8.5) Ur Specific [place] 1.039 H (1.002-1.035) Urine Protein 30 H (Neg-Trace) mg/dL Urine Glucose (UA) 500 or greater (Negative) mg/dL - Imaging Impressions Abdomen/Pelvis CT 05/16/18 17:11 CONCLUSION: 1. Apparent mild nonspecific colitis, mostly in the hepatic flexure region. 2. Liver is slightly fatty infiltrated. Caprini VTE Risk Assessment Caprini VTE Risk Assessment: No/Low Risk (score <= 1) Caprini Risk Assessment Model: Point Value = 1 Point Value = 2 Point Value = 3 Point Value = 5 Age 41-60 Minor surgery BMI > 25 kg/m2 Swollen legs Varicose veins or History of unexplained or recurrent spontaneous Oral contraceptives or hormone replacement Sepsis (< 1 month) Serious lung disease, including pneumonia (< 1 month) Abnormal pulmonary function Acute myocardial infarction Congestive heart failure (< 1 month) History of inflammatory bowel disease Medical patient at bed rest Age 61-74 Arthroscopic surgery Major open surgery (> 45 min) Laparoscopic surgery (> 45 min) Malignancy Confined to bed (> 72 hours) Immobilizing plaster cast Central venous access Age >= 75 History of VTE Family history of VTE Factor V Leiden Prothrombin [id number] Lupus anticoagulant Anticardiolipin antibodies Elevated serum homocysteine Heparin-induced thrombocytopenia Other congenital or acquired thrombophilia Stroke (< 1 month) Elective arthroplasty Hip, pelvis, or leg fracture Acute spinal cord injury (< 1 month) Prophylaxis Regimen: Total Risk Factor Score Risk Level Prophylaxis Regimen 0-1 Low Early ambulation 2 Moderate Order ONE of the following: *Sequential Compression Device (SCD) *Heparin 5000 units SQ BID 3-4 Higher Order ONE of the following medications: *Heparin 5000 units SQ TID *Enoxaparin/Lovenox 40 mg SQ daily (WT < 150 kg, CrCl > 30 mL/min) *Enoxaparin/Lovenox 30 mg SQ daily (WT < 150 kg, CrCl > 10-29 mL/min) *Enoxaparin/Lovenox 30 mg SQ BID (WT < 150 kg, CrCl > 30 mL/min) AND/OR *Sequential Compression Device (SCD) 5 or more Highest Order ONE of the following medications: *Heparin 5000 units SQ TID (Preferred with Epidurals) *Enoxaparin/Lovenox 40 mg SQ daily (WT < 150 kg, CrCl > 30 mL/min) *Enoxaparin/Lovenox 30 mg SQ daily (WT < 150 kg, CrCl > 10-29 mL/min) *Enoxaparin/Lovenox 30 mg SQ BID (WT < 150 kg, CrCl > 30 mL/min) AND *Sequential Compression Device (SCD) Assessment and Plan - Plan //Sepsis //Colitis //Nausea and vomiting -Lactic acid 3.2 on admission. Improved to 2.4. Will need to be followed subsequently. -Leukocytosis, tachycardia. Abdominal tenderness, colitis on abdominal CT. -Check stool enteric pathogens and C. difficile -IDSA recommends against obtaining blood cultures for intra-abdominal infections. -Antiemetics as necessary. -Pain regimen ordered. Broad-spectrum antibiotics. //Diabetes mellitus type 1 //Ketosis on admission without anion gap. //Hyperglycemia with glucose in the 300s. Start Levemir, insulin sliding scale. Give 5 units of IV insulin. Watch potassium closely. //Hypertension. Blood pressure elevated. Will start on as needed Vasotec. Discussed Condition With: Patient, nurse, ED physician.
[2018-05-17] MEDS: Insulin Detemir Inj 1,000 UNIT/10 ML Vial SQ SCH ×2 (08:48→20:37)
[2018-05-17] MEDS: Insulin NovoLOG Aspart Correctional Sugar Inj SQ SCH ×4 (08:49→20:31)
--- NOTE | 2018-05-17 09:21 | P.PNIM ---
Subjective Interval history: f/u; colitis in no acute distress. abdominal pain is mild. has some nausea and vomited earlier today. no fever. Physical Exam Vital signs: Vital Signs 05/16/18 16:05 05/16/18 17:30 05/16/18 19:17 Temperature 97.4 F L Pulse Rate 120 H 111 H Respiratory Rate 18 16 18 Blood Pressure 179/104 H 163/99 H Pulse Oximetry 98 97 05/17/18 02:04 05/17/18 05:57 Temperature Pulse Rate 117 H 104 H Respiratory Rate 18 15 Blood Pressure 165/97 H 111/59 L Pulse Oximetry 99 99 Intake & Output 05/16/18 05/17/18 05/17/18 18:59 06:59 18:59 Intake Total 1000 / 1000 1600 / 1600 Balance 1000 / 1000 1600 / 1600 Weight 72.575 kg Intake: IV 1000 / 1000 1600 / 1600 Maxipime Inj 2,000 MG In NS Inj 100 / 100 100 ML @ 200 mls/hr IV.SIG Q8H [facility] Rx#:[id number] Cipro 400 MG/200 ML Inj 400 mg 200 / 200 In 200 ml @ 200 mls/hr IV.SIG ONCE ONE Rx#:[id number] KCl 10 mEq Premix Inj 10 meq In 100 / 100 100 ml @ 100 mls/hr IV.SIG ONCE ONE Rx#:[id number] NS Inj 1,000 ML @ 1000 mls/hr 1000 / 1000 1000 / 1000 IV.SIG BOLUS [facility]EE[facility] Rx#:[id number] Flagyl 500 MG Inj 100 ML @ 100 200 / 200 mls/hr IV.SIG Q8H [facility] Rx#: [id number] Other: Date of Last Bowel Movement 05/16/18 - Constitutional no acute distress - Routine Respiratory Exam Present: CTA bilaterally - Routine Cardiovascular Exam Present: RRR - Routine Abdominal Exam Present: soft - Routine Extremities Exam Comments: no pedal edema. - Routine Neurological Exam Present: alert, oriented X3 Results - Labs CBC & Chem 7: 05/16/18 18:40 05/16/18 18:40 Laboratory Results - last 24 hr 05/16/18 05/16/18 05/16/18 18:40 18:40 22:00 WBC 12.2 H RBC 5.16 Hgb 14.5 Hct 44.1 MCV 85.5 MCH 28.1 MCHC 32.8 RDW 13.2 Plt Count 393 MPV 8.0 Neut % (Auto) 92.5 H Lymph % (Auto) 3.5 L [place] % (Auto) 3.3 Eos % (Auto) 0.0 Baso % (Auto) 0.7 Neut # (Auto) 11.3 H Lymph # (Auto) 0.4 L [place] # (Auto) 0.4 Eos # (Auto) 0.0 Baso # (Auto) 0.1 WBC Differential . Differential Comment Auto diff final Sodium 140 Potassium 4.0 Chloride 105 Carbon Dioxide 20.6 L Anion Gap 14 BUN 14 Creatinine 1.07 Estimated GFR Greater than 89 POC Glucose Random Glucose 203 H Lactic Acid Calcium 9.2 Magnesium 1.8 Total Bilirubin 0.2 AST 13 L ALT 18 Alkaline Phosphatase 92 Total Protein 8.2 Albumin 3.9 Lipase 92 Urine Color Straw Urine Clarity Clear Urine pH 5.0 Ur Specific [place] 1.039 H Urine Protein 30 H Urine Glucose (UA) 500 or greater Urine Ketones 80 or greater H Urine Occult Blood Negative Urine Nitrate Negative Urine Bilirubin Negative Urine Urobilinogen Less than 2 Ur Leukocyte Esterase Negative Urine RBC 1 Urine WBC Less than 1 Hyaline Casts 1 Urine Mucus Few H Micro UA Comment Culture not ind Ur Microscopic Review Not Reportable Urine Culture Comments Culture not ind 05/16/18 05/17/18 05/17/18 23:01 00:52 02:01 WBC RBC Hgb Hct MCV MCH MCHC RDW Plt Count MPV Neut % (Auto) Lymph % (Auto) [place] % (Auto) Eos % (Auto) Baso % (Auto) Neut # (Auto) Lymph # (Auto) [place] # (Auto) Eos # (Auto) Baso # (Auto) WBC Differential Differential Comment Sodium Potassium Chloride Carbon Dioxide Anion Gap BUN Creatinine Estimated GFR POC Glucose 382 H Random Glucose Lactic Acid 3.2 H 2.4 H Calcium Magnesium Total Bilirubin AST ALT Alkaline Phosphatase Total Protein Albumin Lipase Urine Color Urine Clarity Urine pH Ur Specific [place] Urine Protein Urine Glucose (UA) Urine Ketones Urine Occult Blood Urine Nitrate Urine Bilirubin Urine Urobilinogen Ur Leukocyte Esterase Urine RBC Urine WBC Hyaline Casts Urine Mucus Micro UA Comment Ur Microscopic Review Urine Culture Comments 05/17/18 05/17/18 05/17/18 03:43 04:08 08:16 WBC RBC Hgb Hct MCV MCH MCHC RDW Plt Count MPV Neut % (Auto) Lymph % (Auto) [place] % (Auto) Eos % (Auto) Baso % (Auto) Neut # (Auto) Lymph # (Auto) [place] # (Auto) Eos # (Auto) Baso # (Auto) WBC Differential Differential Comment Sodium Potassium Chloride Carbon Dioxide Anion Gap BUN Creatinine Estimated GFR POC Glucose 369 H 298 H Random Glucose Lactic Acid 2.6 H Calcium Magnesium Total Bilirubin AST ALT Alkaline Phosphatase Total Protein Albumin Lipase Urine Color Urine Clarity Urine pH Ur Specific [place] Urine Protein Urine Glucose (UA) Urine Ketones Urine Occult Blood Urine Nitrate Urine Bilirubin Urine Urobilinogen Ur Leukocyte Esterase Urine RBC Urine WBC Hyaline Casts Urine Mucus Micro UA Comment Ur Microscopic Review Urine Culture Comments - Imaging Impressions Abdomen/Pelvis CT 05/16/18 17:11 CONCLUSION: 1. Apparent mild nonspecific colitis, mostly in the hepatic flexure region. 2. Liver is slightly fatty infiltrated. Assessment and Plan - Plan Sepsis Colitis -Lactic acid 3.2 on admission. Improved. -Leukocytosis, tachycardia. Abdominal tenderness, colitis on abdominal CT. -Check stool enteric pathogens and C. difficile -Antiemetics as necessary. -Pain regimen ordered. Broad-spectrum antibiotics. Diabetes mellitus type 1 Ketosis on admission without anion gap. continue Levemir, insulin sliding scale. Hypertension; resume lisinopril- as needed Vasotec.
--- NOTE | 2018-05-17 10:10 | ECG ---
Date Performed: 05/16/2018 Time Performed: 23:15:23 PTAGE: 37 years EKG: SINUS TACHYCARDIA POSSIBLE LEFT ATRIAL ENLARGEMENT Since the previous tracing, no significa nt change noted ABNORMAL RHYTHM ECG PREVIOUS TRACING : 03/29/18 DOCTOR: Melvin Damon Interpretating Date/Time 05/17/2018 10:08:47
[2018-05-17] MEDS: Gabapentin 300 MG Capsule PO SCH ×2 (20:26→20:40)
[2018-05-18] MEDS: Morphine Sulfate Inj 2 MG/ML Vial IV.PUSH PRN (00:24)
[2018-05-18 04:57] LABS: Baso % (Auto) 0.4 % (0.0-2.0); Eos % (Auto) 0.2 % (0.0-4.0); Hematocrit 42.9 % (39.0-51.0); Hemoglobin 14.7 gm/dL (13.0-17.0); Lymph # (Auto) 1.2 th/mm3 (1.0-4.8); Lymph % (Auto) 10.5 % (9.0-44.0); Mean Corpuscular HGB Conc 34.3 % (32.0-36.0); Mean Corpuscular Hemoglobin 29.2 pg (27.0-34.0); Mean Corpuscular Volume 85.1 fL (80.0-100.0); Mean Platelet Volume 8.8 fL (7.0-11.0); Mono # (Auto) 0.7 th/mm3 (0.0-0.9); Mono % (Auto) 6.5 % (0.0-8.0); Neut # (Auto) 9.4 th/mm3 (1.8-7.7); Neut % (Auto) 82.4 % (16.0-70.0); Platelet Count 342 th/mm3 (150-450); Red Blood Count 5.04 mil/mm3 (4.50-5.90); Red Cell Distribution Width 13.3 % (11.6-17.2); White Blood Count 11.4 th/mm3 (4.0-11.0)
[2018-05-18 05:33] LABS: Alanine Aminotransferase 16 U/L (12-78); Albumin 3.7 g/dL (3.4-5.0); Anion Gap 19 meq/L (5-15); Aspartate Aminotransferase 11 U/L (15-37); Blood Urea Nitrogen 12 mg/dL (7-18); Calcium 8.8 mg/dL (8.5-10.1); Carbon Dioxide 18.5 meq/L (21.0-32.0); Chloride 103 meq/L (98-107); Glomerular Filtration Rate Greater Than 89 mL/min (>89); Glucose,Random 233 mg/dL (74-106); Sodium 140 meq/L (136-145)
[2018-05-18 05:35] LABS: Alkaline Phosphatase 87 U/L (45-117); Total Protein 7.8 g/dL (6.4-8.2)
[2018-05-18] MEDS: Sod Chloride 0.9% Inj 1,000 ML IV.CONT SCH (06:47)
[2018-05-18] MEDS: Lisinopril 5 MG Tablet PO SCH (08:41)
[2018-05-18] MEDS: Insulin NovoLOG Aspart Correctional Sugar Inj SQ SCH ×5 (08:42→21:06)
[2018-05-18] MEDS: Insulin Detemir Inj 1,000 UNIT/10 ML Vial SQ SCH ×2 (08:42→21:12)
--- NOTE | 2018-05-18 10:43 | P.DIET ---
Nutritional Evaluation Type of nutrition evaluation: initial Nutrition screening: Weight Loss > 10 lbs Subjective Subjective Comments: N/V/D DIRECTOR STRATEGY. Reports poor appetite. Objective - Diagnosis Sepsis, Colitis, Dehydration - Objective % IBW: 107 (IBW = 135#) Body Weight Used for Calculations: Actual (65.5 kg) Energy Needs - Lower Range (kCal/kg): 25 Energy Needs - Upper Range (kCal/kg): 30 Lower Limit kCal/kg (kCals): 1,638 Upper Limit kCal/kg (kCals): 1,965 Lower Limit Protein Factor (Grams per Kg): 1.0 Upper Limit Protein Factor (Grams per Kg): 1.5 Lower Protein Needs (Protein): 66 Upper Protein Needs (Protein): 98 Fluid Factor (ml/kg): 30 Estimated Fluid Needs (ml): 1,965 Dietitian Reviewed in Medical Record: Curent medications, Intake & Output, Labs , Medical history Diet Order: NPO Objective Comments: Hx includes DMT1 GLU 233 Assessment Assessment: Pt is at high nutrition risk 2' to dx and unintentional weight loss. RD will monitor diet advance, po intake and assess for the need of supplements. Recommendations: Advance diet as able to [address] following. Dietitian to Monitor: Lab values, Glucose level, Intake & Output, Weight change , PO Intake, Diet advancement, Medical course
[2018-05-18] MEDS: oxyCODONE/Acetaminophen 10/325 Tablet PO PRN ×2 (10:57→21:05)
--- NOTE | 2018-05-18 10:57 | P.PNIM ---
Subjective Interval history: f/u abdominal pain Abdominal pain still moderate to severe, has not had any episode of diarrhea, has not had flatus. Still very nauseated, no episodes of vomiting but patient has not been eating. Afebrile. Physical Exam Vital signs: Vital Signs 05/17/18 11:07 05/17/18 12:25 05/17/18 15:03 Temperature 98.6 F Pulse Rate 105 H 118 H 100 H Respiratory Rate 18 17 Blood Pressure 165/86 H 168/90 H Pulse Oximetry 100 97 05/17/18 16:00 05/17/18 19:56 05/17/18 20:00 Temperature 98.1 F 98.1 F Pulse Rate 113 H 113 H 123 H Respiratory Rate 17 20 Blood Pressure 164/96 H 173/100 H Pulse Oximetry 99 99 05/18/18 00:00 05/18/18 01:20 05/18/18 02:30 Temperature 98.7 F Pulse Rate 96 H Respiratory Rate 20 Blood Pressure 175/97 H 187/98 H 179/88 H Pulse Oximetry 99 05/18/18 02:35 05/18/18 04:00 05/18/18 08:00 Temperature 97.9 F 97.7 F Pulse Rate 103 H 94 H Respiratory Rate 20 18 Blood Pressure 174/98 H 180/109 H 148/95 H Pulse Oximetry 99 99 Intake & Output 05/17/18 05/18/18 05/18/18 18:59 06:59 18:59 Intake Total 1400 / 1400 2200 / 2200 200 / 200 Balance 1400 / 1400 2200 / 2200 200 / 200 Weight 65.5 kg Intake: IV 1400 / 1400 2200 / 2200 200 / 200 NS Inj 1,000 ML @ 100 mls/hr IV 1000 / 1000 2000 / 2000 .CONT .Q10H [facility] Rx#:[id number] Maxipime Inj 2,000 MG In NS Inj 200 / 200 100 / 100 100 / 100 100 ML @ 200 mls/hr IV.SIG Q8H [facility] Rx#:[id number] Flagyl 500 MG Inj 100 ML @ 100 200 / 200 100 / 100 100 / 100 mls/hr IV.SIG Q8H [facility] Rx#: [id number] Other: # Voids 3 Weight On Admission 65.5 kg Narrative: Not in distress but in pain Pupils equal round reactive, anicteric, pink conjunctiva Regular rate and rhythm, no murmurs Clear breath sounds Abdomen soft, nondistended, sluggish bowel sounds, tender to moderate palpation diffusely, no guarding. No edema Alert awake and oriented x3, no cranial nerve deficits, no focal neurologic deficits. Results - Labs CBC & Chem 7: 05/18/18 03:42 05/18/18 03:42 Laboratory Results - last 24 hr 05/17/18 05/17/18 05/17/18 11:11 17:14 19:35 WBC RBC Hgb Hct MCV MCH MCHC RDW Plt Count MPV Neut % (Auto) Lymph % (Auto) [place] % (Auto) Eos % (Auto) Baso % (Auto) Neut # (Auto) Lymph # (Auto) [place] # (Auto) Eos # (Auto) Baso # (Auto) WBC Differential Differential Comment Sodium Potassium Chloride Carbon Dioxide Anion Gap BUN Creatinine Estimated GFR POC Glucose 243 H 262 H 197 H Random Glucose Lactic Acid Calcium Total Bilirubin AST ALT Alkaline Phosphatase Total Protein Albumin 05/17/18 05/18/18 05/18/18 20:09 03:42 03:42 WBC 11.4 H RBC 5.04 Hgb 14.7 Hct 42.9 MCV 85.1 MCH 29.2 MCHC 34.3 RDW 13.3 Plt Count 342 MPV 8.8 Neut % (Auto) 82.4 H Lymph % (Auto) 10.5 [place] % (Auto) 6.5 Eos % (Auto) 0.2 Baso % (Auto) 0.4 Neut # (Auto) 9.4 H Lymph # (Auto) 1.2 [place] # (Auto) 0.7 Eos # (Auto) 0.0 Baso # (Auto) 0.0 WBC Differential . Differential Comment Auto diff final Sodium 140 Potassium 4.0 Chloride 103 Carbon Dioxide 18.5 L Anion Gap 19 H BUN 12 Creatinine 1.04 Estimated GFR Greater than 89 POC Glucose Random Glucose 233 H Lactic Acid 1.7 Calcium 8.8 Total Bilirubin 0.3 AST 11 L ALT 16 Alkaline Phosphatase 87 Total Protein 7.8 Albumin 3.7 05/18/18 08:37 WBC RBC Hgb Hct MCV MCH MCHC RDW Plt Count MPV Neut % (Auto) Lymph % (Auto) [place] % (Auto) Eos % (Auto) Baso % (Auto) Neut # (Auto) Lymph # (Auto) [place] # (Auto) Eos # (Auto) Baso # (Auto) WBC Differential Differential Comment Sodium Potassium Chloride Carbon Dioxide Anion Gap BUN Creatinine Estimated GFR POC Glucose 266 H Random Glucose Lactic Acid Calcium Total Bilirubin AST ALT Alkaline Phosphatase Total Protein Albumin Assessment and Plan - Plan This is a 37-year-old male with history of diabetes mellitus presenting with abdominal pain Sepsis secondary to colitis -Lactic acidosis resolved, leukocytosis still present but better, CT scan showed colitis. Awaiting for stool sample for C. difficile and enteric pathogens. Continue pain control, cefepime and Flagyl. Check abdominal x-ray. Supportive management with antiemetics. Recheck CMP and CBC tomorrow Diabetes mellitus type 1 Ketosis on admission without anion gap. continue Levemir, insulin sliding scale. Hypertension; resume lisinopril, as needed Vasotec. DVT prophylaxis: Low risk
[2018-05-18] MEDS: Potassium Chloride Inj 10 MEQ in Dextrose 5%/NaCl 0.9% Inj 1,000 ML IV.CONT SCH (12:51)
--- NOTE | 2018-05-18 15:43 | XR ---
EXAM DATE: 05/18/2018 3:40 PM EST AGE/SEX: 37 years / Male INDICATIONS: Abdominal pain. CLINICAL DATA: This is the patient's initial encounter. Patient reports that signs and symptoms have been present for 4 - 6 days and indicates a pain score of 7/10. MEDICAL/SURGICAL HISTORY: Diabetes. Hypertension. None. COMPARISON: No prior exams available for comparison. FINDINGS: The abdominal bowel gas pattern is normal. No abnormal masses, calcifications, or organomegaly is s een. The osseous structures are unremarkable. CONCLUSION: Negative examination. Electronically signed by: Adrian Rodriguez MD 05/18/2018 3:41 PM EST
[2018-05-18] MEDS: Gabapentin 300 MG Capsule PO SCH (21:04)
[2018-05-19] MEDS: oxyCODONE/Acetaminophen 10/325 Tablet PO PRN ×3 (02:45→21:03)
[2018-05-19] MEDS: Potassium Chloride Inj 10 MEQ in Dextrose 5%/NaCl 0.9% Inj 1,000 ML IV.CONT SCH ×3 (05:17→18:24)
[2018-05-19] MEDS: Insulin NovoLOG Aspart Correctional Sugar Inj SQ SCH ×4 (08:04→21:05)
[2018-05-19] MEDS: Insulin Detemir Inj 1,000 UNIT/10 ML Vial SQ SCH ×2 (08:05→21:04)
[2018-05-19] MEDS: Lisinopril 5 MG Tablet PO SCH (08:05)
--- NOTE | 2018-05-19 10:48 | P.PN ---
Subjective Interval history: no nausea, did not have a BM Wants to eat Will try CLD However if nauseated and vomiting will go back to NPO and might need NGT Discussed with the nurse Physical Exam Vital signs: Vital Signs 05/18/18 12:00 05/18/18 16:00 05/18/18 19:49 Temperature 97.8 F 97.4 F L Pulse Rate 124 H 103 H 114 H Respiratory Rate 18 18 Blood Pressure 164/81 H 160/96 H Pulse Oximetry 98 97 05/18/18 20:00 05/18/18 23:48 05/19/18 00:00 Temperature 98 F 98.2 F Pulse Rate 109 H 74 100 H Respiratory Rate 20 16 Blood Pressure 175/106 H 182/108 H Pulse Oximetry 99 100 05/19/18 03:46 05/19/18 04:00 Temperature 97.9 F Pulse Rate 88 92 H Respiratory Rate 20 Blood Pressure 120/89 Pulse Oximetry 99 Intake & Output 05/18/18 05/19/18 05/19/18 18:59 06:59 18:59 Intake Total 1400 / 1400 1200 / 1200 200 / 200 Balance 1400 / 1400 1200 / 1200 200 / 200 Weight 67 kg Intake: IV 1400 / 1400 1200 / 1200 200 / 200 KCl Inj 10 MEQ In D5W/Normal 1000 / 1000 Saline Inj 1,000 ML @ 100 mls/ hr IV.CONT .Q10H3M NEENA Rx#: [id number] NS Inj 1,000 ML @ 100 mls/hr IV 1000 / 1000 .CONT .Q10H NEENA Rx#:[id number] Maxipime Inj 2,000 MG In NS Inj 200 / 200 100 / 100 100 / 100 100 ML @ 200 mls/hr IV.SIG Q8H NEENA Rx#:[id number] Flagyl 500 MG Inj 100 ML @ 100 200 / 200 100 / 100 100 / 100 mls/hr IV.SIG Q8H NEENA Rx#: [id number] Other: # Voids 3 1 Narrative: GENERAL: Pleasant 37-year-old male in bed appears in not acute distress. CARDIOVASCULAR: Regular rate and rhythm without murmurs, gallops, or rubs. RESPIRATORY: Breath sounds equal bilaterally. No accessory muscle use. GASTROINTESTINAL: Abdomen soft, diffuse tenderness to palpation, decreased bowel sounds, nondistended. MUSCULOSKELETAL: No cyanosis, or edema. BACK: Nontender without obvious deformity. No CVA tenderness. Results - Labs CBC & Chem 7: 05/18/18 03:42 05/18/18 03:42 Laboratory Results - last 24 hr 05/18/18 05/18/18 05/18/18 12:50 16:28 20:08 POC Glucose 268 H 261 H 264 H 05/19/18 07:45 POC Glucose 268 H - Imaging Impressions Abdomen X-Ray 05/18/18 00:00 CONCLUSION: Negative examination. Assessment and Plan - Plan This is a 37-year-old male with history of diabetes mellitus presenting with abdominal pain Sepsis secondary to colitis, resolving -Lactic acidosis resolved, leukocytosis still present but better, CT scan showed colitis. Awaiting for stool sample for C. difficile and enteric pathogens. So far not able to obtain as patient did not have any bowel movements. Continue pain control, cefepime and Flagyl. Check abdominal x-ray. Supportive management with antiemetics. monitor CMP and CBC Has been n.p.o., will advance diet as he tolerates Diabetes mellitus type 1 Ketosis on admission without anion gap. continue Levemir, insulin sliding scale. Hypertension; resume lisinopril, as needed Vasotec. DVT prophylaxis: Low risk Discharge in 1 or 2 days when tolerates food and have a bowel movement
[2018-05-19] MEDS: Gabapentin 300 MG Capsule PO SCH (21:05)
[2018-05-20 05:08] LABS: Baso # (Auto) 0.1 th/mm3 (0.0-0.2); Eos # (Auto) 0.1 th/mm3 (0.0-0.4); Hematocrit 40.9 % (39.0-51.0); Hemoglobin 14.1 gm/dL (13.0-17.0); Lymph # (Auto) 2.4 th/mm3 (1.0-4.8); Lymph % (Auto) 42.3 % (9.0-44.0); Mean Corpuscular HGB Conc 34.6 % (32.0-36.0); Mean Corpuscular Hemoglobin 29.1 pg (27.0-34.0); Mean Corpuscular Volume 84.1 fL (80.0-100.0); Mean Platelet Volume 8.5 fL (7.0-11.0); Mono # (Auto) 0.8 th/mm3 (0.0-0.9); Mono % (Auto) 13.4 % (0.0-8.0); Neut # (Auto) 2.3 th/mm3 (1.8-7.7); Neut % (Auto) 41.3 % (16.0-70.0); Platelet Count 273 th/mm3 (150-450); Red Blood Count 4.86 mil/mm3 (4.50-5.90); Red Cell Distribution Width 13.4 % (11.6-17.2); White Blood Count 5.7 th/mm3 (4.0-11.0)
[2018-05-20 05:41] LABS: Anion Gap 10 meq/L (5-15); Blood Urea Nitrogen 12 mg/dL (7-18); Calcium 8.4 mg/dL (8.5-10.1); Carbon Dioxide 23.7 meq/L (21.0-32.0); Chloride 106 meq/L (98-107); Glomerular Filtration Rate Greater Than 89 mL/min (>89); Glucose,Random 121 mg/dL (74-106); Sodium 140 meq/L (136-145)
[2018-05-20 05:42] LABS: Potassium 3.7 meq/L (3.5-5.1)
[2018-05-20] MEDS: Potassium Chloride Inj 10 MEQ in Dextrose 5%/NaCl 0.9% Inj 1,000 ML IV.CONT SCH (06:17)
[2018-05-20] MEDS: Insulin NovoLOG Aspart Correctional Sugar Inj SQ SCH ×2 (07:47→12:42)
[2018-05-20 08:49] VITALS: RESP 16; O2SAT 100
--- NOTE | 2018-05-20 08:50 | P.PN ---
Subjective Interval history: The patient is in the chair feels much better today. No more nausea or vomiting. No more abdominal pain. Will advance diet and change antibiotics to by mouth. If patient's tolerates diet can be discharged later today. He is passing gas however did not have a bowel movement yet. Patient had profuse diarrhea vomiting and nausea on admission. Physical Exam Vital signs: Vital Signs 05/19/18 11:33 05/19/18 12:00 05/19/18 16:00 Temperature 97.9 F 97.7 F Pulse Rate 94 H 92 H 102 H Respiratory Rate 17 16 Blood Pressure 190/109 H 187/114 H Pulse Oximetry 98 99 05/19/18 20:00 05/19/18 22:10 05/20/18 00:00 Temperature 97.8 F 98.0 F Pulse Rate 121 H 85 Respiratory Rate 18 17 18 Blood Pressure 186/102 H 125/85 Pulse Oximetry 99 98 05/20/18 04:00 05/20/18 08:00 Temperature 97.8 F 98.4 F Pulse Rate 87 80 Respiratory Rate 17 16 Blood Pressure 115/80 129/113 H Pulse Oximetry 98 100 Intake & Output 05/19/18 05/20/18 05/20/18 18:59 06:59 18:59 Intake Total 1625 / 1625 1080 / 1080 Output Total 1200 / 1200 Balance 425 / 425 1080 / 1080 Weight 67.5 kg Intake: IV 1405 / 1405 1080 / 1080 KCl Inj 10 MEQ In D5W/Normal 1005 / 1005 880 / 880 Saline Inj 1,000 ML @ 100 mls/ hr IV.CONT .Q10H3M NEENA Rx#: [id number] Maxipime Inj 2,000 MG In NS Inj 200 / 200 100 / 100 100 ML @ 200 mls/hr IV.SIG Q8H NEENA Rx#:[id number] Flagyl 500 MG Inj 100 ML @ 100 200 / 200 100 / 100 mls/hr IV.SIG Q8H NEENA Rx#: [id number] Oral 220 / 220 Output: Urine 1200 / 1200 Other: # Voids 2 # Bowel Movements 1 Narrative: GENERAL: Pleasant 37-year-old male in bed appears in not acute distress. CARDIOVASCULAR: Regular rate and rhythm without murmurs, gallops, or rubs. RESPIRATORY: Breath sounds equal bilaterally. No accessory muscle use. GASTROINTESTINAL: Abdomen soft, no tenderness to palpation, +BS x4Q, nondistended. MUSCULOSKELETAL: No cyanosis, or edema. BACK: Nontender without obvious deformity. No CVA tenderness. Results - Labs CBC & Chem 7: 05/20/18 03:48 05/20/18 03:48 Laboratory Results - last 24 hr 05/19/18 05/19/18 05/19/18 11:23 16:15 19:39 WBC RBC Hgb Hct MCV MCH MCHC RDW Plt Count MPV Neut % (Auto) Lymph % (Auto) [place] % (Auto) Eos % (Auto) Baso % (Auto) Neut # (Auto) Lymph # (Auto) [place] # (Auto) Eos # (Auto) Baso # (Auto) WBC Differential Differential Comment Sodium Potassium Chloride Carbon Dioxide Anion Gap BUN Creatinine Estimated GFR POC Glucose 254 H 241 H 273 H Random Glucose Calcium 05/20/18 05/20/18 05/20/18 03:48 03:48 07:42 WBC 5.7 RBC 4.86 Hgb 14.1 Hct 40.9 MCV 84.1 MCH 29.1 MCHC 34.6 RDW 13.4 Plt Count 273 MPV 8.5 Neut % (Auto) 41.3 Lymph % (Auto) 42.3 [place] % (Auto) 13.4 H Eos % (Auto) 2.0 Baso % (Auto) 1.0 Neut # (Auto) 2.3 Lymph # (Auto) 2.4 [place] # (Auto) 0.8 Eos # (Auto) 0.1 Baso # (Auto) 0.1 WBC Differential . Differential Comment Auto diff final Sodium 140 Potassium 3.7 Chloride 106 Carbon Dioxide 23.7 Anion Gap 10 BUN 12 Creatinine 0.94 Estimated GFR Greater than 89 POC Glucose 134 H Random Glucose 121 H Calcium 8.4 L Assessment and Plan - Plan This is a 37-year-old male with history of diabetes mellitus presenting with abdominal pain Sepsis secondary to colitis, resolved -Lactic acidosis resolved, leukocytosis resolved CT scan showed colitis. Stool sample for C. difficile and enteric pathogens not sent because patient did not have bowel movement. Pain control as need. Discontinue cefepime and Flagyl IV. Change to p.o. antibiotics. Supportive management with antiemetics. Encourage p.o. hydration. Discontinue D5 IV fluids monitor CMP and CBC Advance diet as he tolerates Diabetes mellitus type 1 Ketosis on admission without anion gap. continue Levemir, insulin sliding scale. Hypertension; resume lisinopril, as needed Vasotec. DVT prophylaxis: Low risk Discharge later today when tolerates food. Patient improved significantly. Discharge home in stable condition to follow- up with PCP and consultants as outpatient. [facility]
[2018-05-20] MEDS: Lisinopril 5 MG Tablet PO SCH (09:16)
[2018-05-20] MEDS: Insulin Detemir Inj 1,000 UNIT/10 ML Vial SQ SCH (09:17)
--- NOTE | 2018-05-20 09:19 | P.DS ---
Date of admission: 05/16/18 23:44 Primary care physician: [facility] Brief History from admission: 37-year-old male with a history of type 1 diabetes mellitus, hypertension, gastroparesis who presents with a 3-day history of nausea, vomiting, profuse watery diarrhea, crampy diffuse abdominal pain limited to the abdomen, as well as fatigue.. He reports chills today while in the ER, however denies any fevers. He is also reports hyperglycemia with sugars in the 300s. Denies any dysuria, chest pain, shortness of breath. Patient does have history of cardiac catheterization which was portably negative. DS: Diagnosis - Discharge Diagnosis (1) Colitis Status: Acute (2) Dehydration Status: Acute (3) Sepsis Status: Acute DS: Medications - Discharge Medications Prescriptions: ciprofloxacin HCl 500 mg PO Q12HR #14 tab metronidazole 500 mg PO Q8HR #21 tab DS: Summary Hospital Course: This is a 37-year-old male with history of diabetes mellitus presenting with abdominal pain Sepsis secondary to colitis, resolved -Lactic acidosis resolved, leukocytosis resolved CT scan showed colitis. Stool sample for C. difficile and enteric pathogens not sent because patient did not have bowel movement. Pain control as need. Discontinue cefepime and Flagyl IV. Change to p.o. antibiotics. Supportive management with antiemetics. Encourage p.o. hydration. Discontinue D5 IV fluids monitor CMP and CBC Advance diet as he tolerates Diabetes mellitus type 1 Ketosis on admission without anion gap. continue Levemir, insulin sliding scale. Hypertension; resume lisinopril, as needed Vasotec. Patient improved significantly. Discharge home in stable condition to follow- up with PCP and consultants as outpatient. Patient follows with [facility] - Time Spent with Patient Total time spent providing and/or coordinating discharge services: Greater than 30 minutes - Quality: VTE Deep Vein Thrombosis/Pulmonary Embolism Present on Admission: Yes Exam Vital signs: Vital Signs 05/19/18 11:33 05/19/18 12:00 05/19/18 16:00 Temperature 97.9 F 97.7 F Pulse Rate 94 H 92 H 102 H Respiratory Rate 17 16 Blood Pressure 190/109 H 187/114 H Pulse Oximetry 98 99 05/19/18 20:00 05/19/18 22:10 05/20/18 00:00 Temperature 97.8 F 98.0 F Pulse Rate 121 H 85 Respiratory Rate 18 17 18 Blood Pressure 186/102 H 125/85 Pulse Oximetry 99 98 05/20/18 04:00 05/20/18 08:00 Temperature 97.8 F 98.4 F Pulse Rate 87 80 Respiratory Rate 17 16 Blood Pressure 115/80 129/113 H Pulse Oximetry 98 100 Intake & Output 05/19/18 05/20/18 05/20/18 18:59 06:59 18:59 Intake Total 1625 / 1625 1080 / 1080 Output Total 1200 / 1200 Balance 425 / 425 1080 / 1080 Weight 67.5 kg Intake: IV 1405 / 1405 1080 / 1080 KCl Inj 10 MEQ In D5W/Normal 1005 / 1005 880 / 880 Saline Inj 1,000 ML @ 100 mls/ hr IV.CONT .Q10H3M NEENA Rx#: [id number] Maxipime Inj 2,000 MG In NS Inj 200 / 200 100 / 100 100 ML @ 200 mls/hr IV.SIG Q8H NEENA Rx#:[id number] Flagyl 500 MG Inj 100 ML @ 100 200 / 200 100 / 100 mls/hr IV.SIG Q8H NEENA Rx#: [id number] Oral 220 / 220 Output: Urine 1200 / 1200 Other: # Voids 2 # Bowel Movements 1 Narrative: GENERAL: Pleasant 37-year-old male, appears in not acute distress. CARDIOVASCULAR: Regular rate and rhythm without murmurs, gallops, or rubs. RESPIRATORY: Breath sounds equal bilaterally. No accessory muscle use. GASTROINTESTINAL: Abdomen soft, no tenderness to palpation, +BS x4Q, nondistended. MUSCULOSKELETAL: No cyanosis, or edema. BACK: Nontender without obvious deformity. No CVA tenderness. Results Procedures completed during hospitalization: none Labs on day of discharge: Labs from last 24 hours 05/20/18 05/20/18 05/20/18 07:42 03:48 03:48 WBC 5.7 RBC 4.86 Hgb 14.1 Hct 40.9 MCV 84.1 MCH 29.1 MCHC 34.6 RDW 13.4 Plt Count 273 MPV 8.5 Neut % (Auto) 41.3 Lymph % (Auto) 42.3 [place] % (Auto) 13.4 H Eos % (Auto) 2.0 Baso % (Auto) 1.0 Neut # (Auto) 2.3 Lymph # (Auto) 2.4 [place] # (Auto) 0.8 Eos # (Auto) 0.1 Baso # (Auto) 0.1 WBC Differential . Differential Comment Auto diff final Sodium 140 Potassium 3.7 Chloride 106 Carbon Dioxide 23.7 Anion Gap 10 BUN 12 Creatinine 0.94 Estimated GFR Greater than 89 POC Glucose 134 H Random Glucose 121 H Calcium 8.4 L 05/19/18 05/19/18 05/19/18 19:39 16:15 11:23 WBC RBC Hgb Hct MCV MCH MCHC RDW Plt Count MPV Neut % (Auto) Lymph % (Auto) [place] % (Auto) Eos % (Auto) Baso % (Auto) Neut # (Auto) Lymph # (Auto) [place] # (Auto) Eos # (Auto) Baso # (Auto) WBC Differential Differential Comment Sodium Potassium Chloride Carbon Dioxide Anion Gap BUN Creatinine Estimated GFR POC Glucose 273 H 241 H 254 H Random Glucose Calcium - Impressions ITS Impressions Abdomen/Pelvis CT 05/16/18 17:11 CONCLUSION: 1. Apparent mild nonspecific colitis, mostly in the hepatic flexure region. 2. Liver is slightly fatty infiltrated. Abdomen X-Ray 05/18/18 00:00 CONCLUSION: Negative examination. Discharge Plan - Discharge Disposition Patient Disposition: Discharge Home - Discharge Condition Condition: Stable - Discharge Order Discharge Orders: Discharge Order (Routine); Ordered 05/20/18 Ordered By: Kady Gonzalez - Discharge Details Anticipated Discharge Date: 05/20/18 - Physicians Team Primary Care Provider: [facility] Attending Provider: Kady Gonzalez
[2018-05-20] MEDS ORDERED: Ciprofloxacin 500 MG Tablet PO SCH (10:00)
[2018-05-20] MEDS ORDERED: metroNIDAZOLE 500 MG Tablet PO SCH (10:00)
[2018-05-20 12:34] VITALS: BP 127/91; PULSE 83; TEMP 97.4
== END 2018-05-20 15:07 | disposition home or self-care (01) ==
LOC: NEPC 16:02 → NEDA 23:44 → NEDH 05-17 03:49 → N04 05-17 12:21 → NEDH 05-17 12:26
PROVIDERS: ADMIT Hospitalist; ATTEND Hospitalist